=== PATIENT | female | born 1995 | race Caucasian/White ===

== ENCOUNTER 2018-04-20 18:45 | Emergency (ER) | payer BC ==
[~2018-04-20] VITALS: Ht 170.2 cm; Wt 77.4 kg
[2018-04-20 18:49] VITALS: TEMP 36.9; Ht 170.2 cm; Wt 77.4 kg
[2018-04-20] MEDS ORDERED: ONDANSETRON INJ 2 MG/ML 2 ML VIAL IV STA (19:04)
[2018-04-20] MEDS ORDERED: KETOROLAC TROMETHAMINE 30 MG/ML VIAL IV STA (19:04)
[2018-04-20] MEDS ORDERED: SODIUM CHLORIDE 0.9% 1000ML 1,000 ML IV STA (19:04)
[2018-04-20 19:18] LABS: BASO % 0.2 %; BASO ABS # 0.02 K/uL (0-0.2); EOS % 1.1 %; EOS ABS # 0.09 K/uL (0-0.5); HEMATOCRIT 43.1 % (37-47); HEMOGLOBIN 15.1 g/dL (12.0-16.0); IG# 0.02 K/uL (0.00-0.02); LYMPH % 12.3 %; LYMPH ABS # 1.01 K/uL (1.2-3.4); MEAN CELL VOLUME 81.6 fL (80-100); MEAN CORPUSCULAR HEMOGLOBIN 28.6 pg (25-34); MEAN PLATELET VOLUME 10.4 fL (7.4-10.4); MONO % 13.4 %; NEUT % 72.8 %; NEUT ABS # 5.94 K/uL (1.4-6.5); PLATELET COUNT 276 K/uL (130-400); RED CELL DISTRIBUTION WIDTH CV 13.1 % (11.5-14.5); RED CELL DISTRIBUTION WIDTH SD 39.5 fL (36.4-46.3); WHITE BLOOD COUNT 8.18 K/uL (4.8-10.8)
[2018-04-20 19:38] LABS: ALBUMIN 4.3 gm/dl (3.4-5.0); CALCIUM 9.4 mg/dl (8.5-10.1); CREATININE 0.77 mg/dl (0.60-1.20); POTASSIUM 3.5 mmol/L (3.5-5.1); TOTAL PROTEIN 8.2 gm/dl (6.4-8.2)
[2018-04-20] MEDS ORDERED: ONDA4TAB10 SL (20:27)
[2018-04-20] MEDS ORDERED: ONDANSETRON HOME PACK 4MG OD TAB PO ONE (21:00)
[2018-04-20] MEDS ORDERED: NITR-5 PO (21:00)
[2018-04-20 21:07] VITALS: BP 112/72; PULSE 76; O2SAT 99
--- NOTE | 2018-04-20 22:03 | EMERGENCY ROOM VISIT NOTE ---
History First contact with patient: 18:52 (Jamal Dee PA) First contact with patient: 18:52 (Dalton Long M.D.) Chief Complaint: GI ASSESSMENT Stated Complaint: NAUSEA, VOMITING, DIARRHEA History of Present Illness The patient is a 22 year old female who presents to the Emergency Room with complaints of profuse watery diarrhea, generalized abdominal cramping, nausea and vomiting. Patient reports that she lost her appetite Wednesday afternoon. She then became nauseated around 2:58 PM, followed by fevers and chills. By that evening, she started to develop diarrhea, along with vomiting. The patient reports that she is having difficulty keeping fluids down because of the nausea. She has not noticed any bloody or mucus stools. She denies coffee- ground emesis. She denies any recent unusual foods, recent foreign travel or sick contacts. The patient reports that she does have a prior history of recurrent urinary tract infections, but denies any increased urinary frequency, urgency, dysuria or hematuria, all of which are usual with her UTIs. The patient rates her discomfort a 5 out of 10. (Jamal Dee PA) Review of Systems HEENT: Denies dizziness, visual problems, hearing loss, tinnitus. Denies difficulty swallowing or oral lesions. PULMONARY: Denies cough, shortness of breath, sputum production or hemoptysis. CARDIOVASCULAR: Denies chest pain, palpitations, dyspnea on exertion, orthopnea or peripheral edema. GASTROINTESTINAL: See HPI. GENITOURINARY: Denies dysuria, frequency, urgency or nocturia. NEUROLOGIC: Denies history of epilepsy, CVA, TIA or chronic headaches. MUSCULOSKELETAL: Denies history of joint tenderness/swelling. SKIN: Denies rashes or lesions. PSYCHIATRIC: Denies history of depression or mental illness. ENDOCRINE: Denies history of diabetes or thyroid disorders. (Jamal Dee PA) Past Medical/Surgical History Medical Problems: (1) Recurrent UTI Surgical Problems: (1) No history of previous surgery (Dalton Long M.D.) Family History Unremarkable (Jamal Dee PA) Social History Smoking Status: Never Smoker Alcohol Use: none Marital Status: single Housing Status: lives with family Occupation Status: employed (Jamal Dee PA) Current/Historical Medications Scheduled Nitrofurantoin Monohyd Macrocr (Macrobid), 100 MG PO BID Ondasetron Odt (Zofran Odt), 4 MG SL Q6H Physical Exam Vital Signs Date Time Temp Pulse Resp B/P (MAP) Pulse Ox O2 Delivery O2 Flow Rate FiO2 04/20/18 21:07 76 16 112/72 99 04/20/18 20:38 77 16 115/71 97 Room Air 04/20/18 18:49 36.9 115 18 125/86 95 Room Air (Dalton Long M.D.) Physical Exam CONSTITUTIONAL: Healthy and well nourished. Alert and oriented X 3 with positive affect. Patient appears in mild discomfort, but does not appear toxic. HEENT: Normocephalic, atraumatic. Pupils equal, round and reactive. Ears and nares are clear. No scleral icterus or conjunctival injection. OROPHARYNX: Mucous membranes are dry. No posterior pharyngeal erythema or tonsillar hypertrophy. NECK: Full active range of motion without discomfort. RESPIRATORY: Clear to auscultation bilaterally with no wheezing, crackles, rhonchi or stridor. CARDIOVASCULAR: Regular rate and rhythm with no murmurs, rubs or gallops. GASTROINTESTINAL: Bowel sounds present and hyperactive in all quadrants. Patient has generalized and nonfocal tenderness to palpation of the abdomen. Negative McBurney's point tenderness. Negative CVA tenderness. No rigidity, guarding or rebound. MUSCULOSKELETAL: Full range of motion of all joints without discomfort. INTEGUMENTARY: No rash or other significant dermatologic conditions noted. HEMATOLOGIC: No ecchymosis or petechiae noted. NEUROLOGIC: No focal neurologic deficits noted. (Jamal Dee PA) Medical Decision & Procedures Laboratory Results 04/20/18 19:05 Red Blood Count 5.28, Mean Corpuscular Volume 81.6, Mean Corpuscular Hemoglobin 28.6, Mean Corpuscular Hemoglobin Concent 35.0, Mean Platelet Volume 10.4, Neutrophils (%) (Auto) 72.8, Lymphocytes (%) (Auto) 12.3, Monocytes (%) (Auto) 13.4, Eosinophils (%) (Auto) 1.1, Basophils (%) (Auto) 0.2, Neutrophils # (Auto ) 5.94, Lymphocytes # (Auto) 1.01, Monocytes # (Auto) 1.10, Eosinophils # (Auto ) 0.09, Basophils # (Auto) 0.02 04/20/18 19:05 Test 04/20/18 19:05 04/20/18 19:30 White Blood Count 8.18 K/uL (4.8-10.8) Red Blood Count 5.28 M/uL (4.2-5.4) Hemoglobin 15.1 g/dL (12.0-16.0) Hematocrit 43.1 % (37-47) Mean Corpuscular Volume 81.6 fL (80-100) Mean Corpuscular Hemoglobin 28.6 pg (25-34) Mean Corpuscular Hemoglobin Concent 35.0 g/dl (32-36) Platelet Count 276 K/uL (130-400) Mean Platelet Volume 10.4 fL (7.4-10.4) Neutrophils (%) (Auto) 72.8 % Lymphocytes (%) (Auto) 12.3 % Monocytes (%) (Auto) 13.4 % Eosinophils (%) (Auto) 1.1 % Basophils (%) (Auto) 0.2 % Neutrophils # (Auto) 5.94 K/uL (1.4-6.5) Lymphocytes # (Auto) 1.01 K/uL (1.2-3.4) Monocytes # (Auto) 1.10 K/uL (0.11-0.59) Eosinophils # (Auto) 0.09 K/uL (0-0.5) Basophils # (Auto) 0.02 K/uL (0-0.2) RDW Standard Deviation 39.5 fL (36.4-46.3) RDW Coefficient of Variation 13.1 % (11.5-14.5) Immature Granulocyte % (Auto) 0.2 % Immature Granulocyte # (Auto) 0.02 K/uL (0.00-0.02) Anion Gap 8.0 mmol/L (3-11) Est Creatinine Clear Calc Drug Dose 121.9 ml/min Estimated GFR () 126.1 Estimated GFR (Non- 108.8 BUN/Creatinine Ratio 12.0 (10-20) Calcium Level 9.4 mg/dl (8.5-10.1) Total Bilirubin 1.2 mg/dl (0.2-1) Direct Bilirubin 0.5 mg/dl (0-0.2) Aspartate Amino Transf (AST/SGOT) 34 U/L (15-37) Alanine Aminotransferase (ALT/SGPT) 31 U/L (12-78) Alkaline Phosphatase 81 U/L (45-117) Total Creatine Kinase 36 U/L (26-192) Total Protein 8.2 gm/dl (6.4-8.2) Albumin 4.3 gm/dl (3.4-5.0) Lipase 111 U/L (73-393) Urine Color DK YELLOW Urine Appearance TURBID (CLEAR) Urine pH 5.0 (4.5-7.5) Urine Specific [place] 1.027 (1.000-1.030) Urine Protein 1+ (NEG) Urine Glucose (UA) NEG (NEG) Urine Ketones 2+ (NEG) Urine Occult Blood 1+ (NEG) Urine Nitrite POS (NEG) Urine Bilirubin 1+ (NEG) Urine Urobilinogen NEG (NEG) Urine Leukocyte Esterase SMALL (NEG) Urine WBC (Auto) >30 /hpf (0-5) Urine RBC (Auto) 0-4 /hpf (0-4) Urine Hyaline Casts (Auto) 1-5 /lpf (0-5) Urine Epithelial Cells (Auto) >30 /lpf (0-5) Urine Bacteria (Auto) 4+ (NEG) Urine Pathogenic Casts /lpf (0) Urine Yeast (Auto) (NONE PRSENT) Urine Test NEG (NEG) (Dalton Long M.D.) The above labs were reviewed. Bilirubins are elevated, otherwise CBC, partial renal profile, LFTs and lipase are grossly normal. Urinalysis shows a contaminated sample, but is suggestive of infection. Urine cultures are pending. (Jamal Dee PA) Medications Administered Medications (Trade) Dose Ordered Sig/Blair Route Start Time Stop Time Status Last Admin Dose Admin Ketorolac Tromethamine (Toradol Inj) 30 mg NOW STAT IV 04/20/18 19:04 04/20/18 19:05 DC 04/20/18 19:18 30 MG Sodium Chloride 1,000 ml @ 999 mls/hr Q1H1M STAT IV 04/20/18 19:04 04/20/18 20:04 DC 04/20/18 19:18 999 MLS/HR Ondansetron HCl (Zofran Inj) 4 mg NOW STAT IV 04/20/18 19:04 04/20/18 19:05 DC 04/20/18 19:16 4 MG Ondansetron HCl (ZOFRAN ODT 4MG Home Pack) 1 homepack UD ONCE PO 04/20/18 21:00 04/20/18 21:01 DC 04/20/18 21:06 1 HOMEPACK (Dalton Long M.D.) Procedure 1. IV hydration: The patient was hydrated with 1.5 L of normal saline 2. IV medic patient's: Toradol 30 mg and Zofran 4 mg IVP (Jamal Dee PA) ED Course Patient history and physical exam were performed. Nurse's notes were reviewed. The patient is afebrile and normotensive. She is tachycardic with a pulse of 115 bpm. She also clinically appears dehydrated. IV access was established, and labs were drawn. The patient was hydrated with normal saline, and was administered IV Toradol and Zofran for discomfort and nausea. Labs were reviewed, showing elevated bilirubin levels likely from vomiting. Otherwise her CBC, partial renal profile, LFTs and lipase are grossly normal. Urinalysis is suggestive of infection, and cultures were ordered and pending. The patient reports that she has absolutely no symptoms of urinary tract infection, and does not feel that her symptoms are due to infection. Cultures are currently pending. I did suggest providing a prescription for Macrobid in case she does start to develop symptoms of UTI. Otherwise, the patient was encouraged to rest and remain hydrated. She was provided a prescription for Zofran ODT. She was encouraged to take Tylenol as needed for pain and fever. Loperamide as needed for diarrhea. The patient was able to tolerate fluids and crackers prior to discharge, was happy with plan of care, and denied any pain or nausea at the time of discharge with her mother. (Jamal Dee PA) Medical Decision Patient presents with complaint of nausea, vomiting and watery diarrhea. History and clinical exam findings are most consistent with gastroenteritis. The patient denies eating any unusual foods, known sick contacts or foreign travel. Viral etiology is suspected. Although the patient does have urinalysis findings that is suggestive of UTI, the patient does not feel that she has a UTI given her usual symptoms. The patient will be provided a prescription for Macrobid in case it starts to develop the symptoms. One would not expect profuse watery diarrhea with a UTI. The patient has no focal abdominal examination findings consistent with appendicitis, pyelonephritis or peritonitis. Laboratory studies are not suggestive of pancreatitis, cholecystitis or hepatitis. The patient is afebrile and has no leukocytosis. (Jamal Dee PA) Medication Reconcilliation Current Medication List: was personally reviewed by me (Jamal Dee PA) Blood Pressure Screening Patient's blood pressure: Normal blood pressure (Jamal Dee PA) Impression Primary Impression: Gastroenteritis Departure Information Prescriptions Nitrofurantoin Monohyd Macrocr (Macrobid) 100 Mg Cap 100 MG PO BID for 7 Days, #14 CAP Prov: Jamal Dee PA 04/20/18 Ondasetron Odt (ZOFRAN ODT) 4 Mg Tab 4 MG SL Q6H for Nausea, #10 TAB Prov: Jamal Dee PA 04/20/18 Referrals No Doctor, Assigned (PCP) Patient Instructions My [facility]
== END 2018-04-20 21:07 | disposition home or self-care (01) ==
LOC: C.EDB 18:48 → C.EDC 21:07
DX: K52.9 Noninfective gastroenteritis and colitis, unspecified (principal)

== ENCOUNTER 2018-04-21 14:12 | Emergency (ER) | payer BC ==
[~2018-04-21] VITALS: Ht 170.2 cm; Wt 67.9 kg
[~2018-04-21 14:12] MED LIST: NITR-5 PO; ONDA4TAB10 SL
[2018-04-21 14:18] VITALS: TEMP 36.7; Ht 170.2 cm; Wt 67.9 kg
[2018-04-21] MEDS ORDERED: KETOROLAC TROMETHAMINE 30 MG/ML VIAL IV STA (15:02)
[2018-04-21] MEDS ORDERED: SODIUM CHLORIDE 0.9% 1000ML 2,000 ML IV STA (15:02)
[2018-04-21] MEDS ORDERED: ONDANSETRON INJ 2 MG/ML 2 ML VIAL IV STA (15:02)
[2018-04-21] MEDS ORDERED: LOPERAMIDE HCL 2 MG CAP PO STA (15:17)
[2018-04-21 15:38] LABS: BASO ABS # 0.06 K/uL (0-0.2); EOS % 1.3 %; EOS ABS # 0.08 K/uL (0-0.5); HEMATOCRIT 42.6 % (37-47); HEMOGLOBIN 14.8 g/dL (12.0-16.0); IG# 0.02 K/uL (0.00-0.02); LYMPH % 19.9 %; LYMPH ABS # 1.25 K/uL (1.2-3.4); MEAN CELL VOLUME 81.9 fL (80-100); MEAN CORPUSCULAR HEMOGLOBIN 28.5 pg (25-34); MEAN CORPUSCULAR HGB CONC 34.7 g/dl (32-36); MEAN PLATELET VOLUME 10.3 fL (7.4-10.4); MONO % 15.3 %; MONO ABS # 0.96 K/uL (0.11-0.59); NEUT % 62.2 %; PLATELET COUNT 295 K/uL (130-400); RED CELL DISTRIBUTION WIDTH CV 13.1 % (11.5-14.5); RED CELL DISTRIBUTION WIDTH SD 39.5 fL (36.4-46.3); WHITE BLOOD COUNT 6.27 K/uL (4.8-10.8)
[2018-04-21 15:58] LABS: ALBUMIN 4.4 gm/dl (3.4-5.0); CALCIUM 9.1 mg/dl (8.5-10.1); CREATININE 0.76 mg/dl (0.60-1.20); POTASSIUM 3.3 mmol/L (3.5-5.1); TOTAL PROTEIN 8.4 gm/dl (6.4-8.2)
[2018-04-21 18:52] VITALS: BP 120/58; PULSE 71; O2SAT 98
--- NOTE | 2018-04-22 00:58 | EMERGENCY ROOM VISIT NOTE ---
History First contact with patient: 15:01 Chief Complaint: NAUSEA Stated Complaint: NAUSEA, DIARRHEA Nursing Triage Summary: triage note; pt reports she was seen in ed last night. pt reports nausea since wednesday, diarrhea since wednesday. pt reports continued nausea and diarrhea. "my diarrhea has actually gotten worse." History of Present Illness The patient is a 22 year old female who presents to the Emergency Room with complaints of persistent watery diarrhea for the past 3 days. I evaluated the patient yesterday, and the patient was discharged home with improved symptoms. The patient reports that her abdominal discomfort and nausea are much improved, she still has persistent watery diarrhea. She has not noticed any blood or mucus in her stools. She again denies any urinary symptoms, including hematuria , dysuria or urgency. She denies any back pain, fever or chills. She reports minimal discomfort, rating her discomfort a 2 out of 10 on my exam. Review of Systems HEENT: Denies dizziness, visual problems, hearing loss, tinnitus. Denies difficulty swallowing or oral lesions. PULMONARY: Denies cough, shortness of breath, sputum production or hemoptysis. CARDIOVASCULAR: Denies chest pain, palpitations, dyspnea on exertion, orthopnea or peripheral edema. GASTROINTESTINAL: See HPI. GENITOURINARY: Denies dysuria, frequency, urgency or nocturia. NEUROLOGIC: Denies history of epilepsy, CVA, TIA or chronic headaches. MUSCULOSKELETAL: Denies history of joint tenderness/swelling. SKIN: Denies rashes or lesions. PSYCHIATRIC: Denies history of depression or mental illness. ENDOCRINE: Denies history of diabetes or thyroid disorders. Past Medical/Surgical History Medical Problems: (1) Recurrent UTI Surgical Problems: (1) No history of previous surgery Family History Unremarkable Social History Smoking Status: Never Smoker Alcohol Use: none Marital Status: single Housing Status: lives with family Occupation Status: employed Current/Historical Medications Scheduled Nitrofurantoin Monohyd Macrocr (Macrobid), 100 MG PO BID Ondasetron Odt (Zofran Odt), 4 MG SL Q6H Physical Exam Vital Signs Date Time Temp Pulse Resp B/P (MAP) Pulse Ox O2 Delivery O2 Flow Rate FiO2 04/21/18 18:52 71 16 120/58 98 04/21/18 16:58 80 16 123/60 04/21/18 14:18 36.7 99 18 122/80 99 Room Air Physical Exam CONSTITUTIONAL: Healthy and well nourished. Alert and oriented X 3 with positive affect. Patient appears much improved from yesterday symptoms. HEENT: Normocephalic, atraumatic. Pupils equal, round and reactive. OROPHARYNX: Mucous membranes are dry. No tonsillar hypertrophy or exudates. NECK: Full active range of motion without discomfort. RESPIRATORY: Clear to auscultation bilaterally with no wheezing, crackles, rhonchi or stridor. CARDIOVASCULAR: Regular rate and rhythm with no murmurs, rubs or gallops. GASTROINTESTINAL: Bowel sounds present in all quadrants. When compared to yesterday, the patient has milder generalized and nonfocal tenderness to palpation of the abdomen. Negative McBurney's point tenderness. Negative CVA tenderness. Negative Guido sign. No rigidity, guarding or rebound. MUSCULOSKELETAL: Full range of motion of all joints without discomfort. INTEGUMENTARY: No rash or other significant dermatologic conditions noted. HEMATOLOGIC: No ecchymosis or petechiae. NEUROLOGIC: No focal neurologic deficits noted. Medical Decision & Procedures Laboratory Results 04/21/18 15:08 Red Blood Count 5.20, Mean Corpuscular Volume 81.9, Mean Corpuscular Hemoglobin 28.5, Mean Corpuscular Hemoglobin Concent 34.7, Mean Platelet Volume 10.3, Neutrophils (%) (Auto) 62.2, Lymphocytes (%) (Auto) 19.9, Monocytes (%) (Auto) 15.3, Eosinophils (%) (Auto) 1.3, Basophils (%) (Auto) 1.0, Neutrophils # (Auto ) 3.90, Lymphocytes # (Auto) 1.25, Monocytes # (Auto) 0.96, Eosinophils # (Auto ) 0.08, Basophils # (Auto) 0.06 04/21/18 15:08 Test 04/21/18 15:08 04/21/18 15:18 White Blood Count 6.27 K/uL (4.8-10.8) Red Blood Count 5.20 M/uL (4.2-5.4) Hemoglobin 14.8 g/dL (12.0-16.0) Hematocrit 42.6 % (37-47) Mean Corpuscular Volume 81.9 fL (80-100) Mean Corpuscular Hemoglobin 28.5 pg (25-34) Mean Corpuscular Hemoglobin Concent 34.7 g/dl (32-36) Platelet Count 295 K/uL (130-400) Mean Platelet Volume 10.3 fL (7.4-10.4) Neutrophils (%) (Auto) 62.2 % Lymphocytes (%) (Auto) 19.9 % Monocytes (%) (Auto) 15.3 % Eosinophils (%) (Auto) 1.3 % Basophils (%) (Auto) 1.0 % Neutrophils # (Auto) 3.90 K/uL (1.4-6.5) Lymphocytes # (Auto) 1.25 K/uL (1.2-3.4) Monocytes # (Auto) 0.96 K/uL (0.11-0.59) Eosinophils # (Auto) 0.08 K/uL (0-0.5) Basophils # (Auto) 0.06 K/uL (0-0.2) RDW Standard Deviation 39.5 fL (36.4-46.3) RDW Coefficient of Variation 13.1 % (11.5-14.5) Immature Granulocyte % (Auto) 0.3 % Immature Granulocyte # (Auto) 0.02 K/uL (0.00-0.02) Anion Gap 8.0 mmol/L (3-11) Est Creatinine Clear Calc Drug Dose 112.0 ml/min Estimated GFR () 128.1 Estimated GFR (Non- 110.6 BUN/Creatinine Ratio 11.1 (10-20) Calcium Level 9.1 mg/dl (8.5-10.1) Total Bilirubin 1.1 mg/dl (0.2-1) Direct Bilirubin 0.4 mg/dl (0-0.2) Aspartate Amino Transf (AST/SGOT) 36 U/L (15-37) Alanine Aminotransferase (ALT/SGPT) 34 U/L (12-78) Alkaline Phosphatase 93 U/L (45-117) Total Protein 8.4 gm/dl (6.4-8.2) Albumin 4.4 gm/dl (3.4-5.0) Lipase 149 U/L (73-393) Urine Color YELLOW Urine Appearance CLEAR (CLEAR) Urine pH 6.0 (4.5-7.5) Urine Specific [place] 1.010 (1.000-1.030) Urine Protein NEG (NEG) Urine Glucose (UA) NEG (NEG) Urine Ketones 1+ (NEG) Urine Occult Blood NEG (NEG) Urine Nitrite NEG (NEG) Urine Bilirubin NEG (NEG) Urine Urobilinogen NEG (NEG) Urine Leukocyte Esterase NEG (NEG) The above labs were reviewed, showing no leukocytosis today. Potassium is 3.3. Urinalysis today does not show any hematuria, nitrites or leukocyte esterase. LFTs and lipase are normal. Medications Administered Medications (Trade) Dose Ordered Sig/Blair Route Start Time Stop Time Status Last Admin Dose Admin Ketorolac Tromethamine (Toradol Inj) 30 mg NOW STAT IV 04/21/18 15:02 04/21/18 15:04 DC 04/21/18 15:48 30 MG Ondansetron HCl (Zofran Inj) 4 mg NOW STAT IV 04/21/18 15:02 04/21/18 15:04 DC 04/21/18 15:49 4 MG Sodium Chloride 2,000 ml @ 999 mls/hr Q2H1M STAT IV 04/21/18 15:02 04/21/18 17:02 DC 04/21/18 15:48 999 MLS/HR Loperamide HCl (Imodium Cap) 4 mg NOW STAT PO 04/21/18 15:17 04/21/18 15:18 DC 04/21/18 15:48 4 MG Procedure 1. IV hydration: The patient was administered a normal saline 2 L bolus 2. IV medications: Toradol 30 mg and Zofran 4 mg IVP ED Course Patient history and physical exam were performed. Nurse's notes were reviewed. Vital signs were reviewed and were normal. Please refer to my dictation of yesterday regarding yesterday's presenting symptoms, laboratory findings and treatment. The patient reports improvement of her abdominal pain and nausea. She reports persistent watery diarrhea without bloody or mucus stools. I did suggest rehydration as she still appears dehydrated. Access was established, and labs were drawn. The patient was hydrated with 2 L of normal saline, and was administered IV Toradol and Zofran. Labs were reviewed and improved from yesterday. It is noted that her urinalysis studies today are normal compared to yesterday. The patient was unable to provide any stool samples today for culture. She reported an improvement of symptoms, and was discharged home with her mother. The patient was administered loperamide 4 mg orally in the emergency department. Because I do not suspect that this is a bacterial infection, the patient was advised that she could judiciously try using the loperamide. I would prefer that she not do so if possible. She was encouraged to continue aggressive oral hydration. Patient reports that she still has plenty of Zofran at home. She was encouraged to follow-up with her PCP within the next 2-3 days , returning to the emergency department as needed for any progressively worsening symptoms, including fever, bloody diarrhea or focalizing abdominal pain. The patient was happy with plan of care, and voiced understanding of all discharge instructions. Medical Decision See previous section. I do not suspect a surgical abdomen. Her abdomen is benign and not suggestive of appendicitis, bowel obstruction or pyelonephritis. Laboratory studies are not consistent with UTI, pancreatitis, cholecystitis or hepatitis. Medication Reconcilliation Current Medication List: was personally reviewed by me Blood Pressure Screening Patient's blood pressure: Normal blood pressure Impression Primary Impression: Gastroenteritis Departure Information Dispostion Home / Self-Care Condition GOOD Forms HOME CARE DOCUMENTATION FORM, IMPORTANT VISIT INFORMATION Patient Instructions My [facility] Additional Instructions Continue with your Zofran ODT nausea medicine every 4-6 hours. You may try loperamide (Imodium) for diarrhea. Continue to remain well-hydrated. Follow-up with your family doctor if the diarrhea persists as you should have stool cultures performed. Return to the emergency department for any worsening symptoms.
== END 2018-04-21 18:53 | disposition home or self-care (01) ==
LOC: C.EDB 14:13
DX: K52.9 Noninfective gastroenteritis and colitis, unspecified (principal)